=== PATIENT | female | born 1935 | race American Indian/Alaskan Native ===

== ENCOUNTER 2018-01-01 11:34 | Inpatient (IN) | payer MEDICARE ==
[2018-01-01] MEDS ORDERED: NACL 0.9% 1000 ML 1,000 ML IV ONE (12:48)
[2018-01-01] MEDS ORDERED: ZOSYN/NS 4.5GM/100ML 4.5 GM/100 ML VIAL IV ONE (12:48)
[2018-01-01] MEDS ORDERED: VANCOMYCIN 1,500 MG in NACL 0.9% 500 ML 500 ML IV ONE (13:00)
[2018-01-01] MEDS ORDERED: VANCOMYCIN PHARMACY TO DOSE IV SCH (13:00)
[2018-01-01 13:32] LABS: Basophils % (Auto) 0.6 % (0.0-1.8); Eosinophils # (Auto) 0.3 K/mm3 (0.0-0.4); Eosinophils % (Auto) 9.1 % (0.0-4.3); Hematocrit 32.3 % (30.3-42.9); Hemoglobin 10.3 gm/dl (10.1-14.3); Lymphocytes # (Auto) 0.8 K/mm3 (1.2-5.4); Lymphocytes % (Auto) 23.8 % (13.4-35.0); Mean Corpuscular HGB Conc 32 % (30-34); Mean Corpuscular Hemoglobin 30 pg (28-32); Mean Corpuscular Volume 95 fl (79-97); Monocytes # (Auto) 0.3 K/mm3 (0.0-0.8); Monocytes % (Auto) 8.4 % (0.0-7.3); Platelet Count 215 K/mm3 (140-440); Red Cell Distribution Width 19.5 % (13.2-15.2)
--- NOTE | 2018-01-01 13:40 | History and Physical Report ---
History of Present Illness Chief complaint: she is confused,and is getting weaker by the day History of present illness: 82 YO Female with Dementia, HTN, Atrial Fib, Decubitus Ulcer present on admission presents to ED for evaluation. Pt is confused and unable to provide detailed history. Pt history provided by daughter who is at bedside during exam and interview. As per daughter, the patient experienced a fall over 1 month ago and has continuously declined since that time with worsening symptoms over the past week. Pt is confused and complains of pain all over her body. No reports of fever, chills, CP, Palpitations, NVD, Syncope, trauma, skin rash, BRBPR, productive cough or recent ill contacts. Pt seen and evaluated in ED and found to have UTI, and Encephalopathy. Pt admitted to medical floor. Past History Past Medical History: atrial fib, hypertension Past Surgical History: No surgical history, Other (reviewed) Social history: single, lives with family. denies: smoking, alcohol abuse, prescription drug abuse Family history: hypertension Medications and Allergies Allergies Allergy/AdvReac Type Severity Reaction Status Date / Time No Known Allergies Allergy Unverified 01/01/18 12:11 Home Medications Medication Instructions Recorded Confirmed Last Taken Type Allopurinol [Zyloprim] 300 mg PO QDAY 01/01/18 01/01/18 Unknown History Aspirin [Aspirin BABY CHEW TAB] 81 mg PO QDAY 01/01/18 01/01/18 Unknown History Calcium Carbonate [Calcium] 600 mg PO QDAY 01/01/18 01/01/18 Unknown History Colchicine [Colcrys] 0.6 mg PO DAILY 01/01/18 01/01/18 Unknown History Ferrous Sulfate 324 mg PO QDAY 01/01/18 01/01/18 Unknown History Metoprolol Tartrate 25 mg PO BID 01/01/18 01/01/18 Unknown History Sennosides [Senna] 8.6 mg PO QDAY 01/01/18 01/01/18 Unknown History Spironolactone [Aldactone] 25 mg PO BID 01/01/18 01/01/18 Unknown History Warfarin [Coumadin] 2.5 mg PO 6XW 01/01/18 01/01/18 Unknown History Warfarin [Coumadin] 5 mg PO 1XW 01/01/18 01/01/18 Unknown History oxyCODONE [Roxicodone] 5 mg PO Q6HR PRN 01/01/18 01/01/18 Unknown History traZODone [Desyrel] 50 mg PO QHS 01/01/18 01/01/18 Unknown History Active Meds: Active Medications Sodium Chloride (Nacl 0.9% 1000 Ml) 1,000 mls @ 999 mls/hr IV BOLUS ONE Stop: 01/01/18 13:48 Vancomycin HCl 1,500 mg/ (Sodium Chloride) 515 mls @ 333.333 mls/hr IV ONCE.ED ONE Stop: 01/01/18 14:32 Vancomycin HCl (Vancomycin Pharmacy To Dose) 1 each IV PKCONSULT SULLY; Protocol Review of Systems ROS unobtainable: due to mental status Exam - Constitutional Vitals: Temp Pulse Resp BP Pulse Ox 98.3 F 104 H 13 134/69 100 01/01/18 12:11 01/01/18 12:11 01/01/18 12:12 01/01/18 12:11 01/01/18 12:12 General appearance: Present: mild distress - EENT Eyes: Present: PERRL ENT: hearing intact, clear oral mucosa - Neck Neck: Present: supple, normal ROM - Respiratory Respiratory: bilateral: CTA - Cardiovascular Heart Sounds: Present: S1 & S2. Absent: rub, click - Extremities Extremities: pulses symmetrical, No edema Peripheral Pulses: within normal limits - Abdominal General gastrointestinal: Present: soft, non-tender, non-distended, normal bowel sounds Female genitourinary: Present: normal - Integumentary Integumentary: Present: clear, warm, dry - Musculoskeletal Musculoskeletal: generalized weakness - Psychiatric Psychiatric: no intact judgment & insight, no memory intact - Neurologic Neurologic: moves all extremities, no gait normal Results - Labs CBC & Chem 7: 01/01/18 13:07 01/01/18 13:07 Labs: Abnormal lab results 01/01/18 Range/Units 13:07 WBC 3.3 L (4.5-11.0) K/mm3 RBC 3.40 L (3.65-5.03) M/mm3 RDW 19.5 H (13.2-15.2) % [place] % (Auto) 8.4 H (0.0-7.3) % Eos % (Auto) 9.1 H (0.0-4.3) % Lymph # 0.8 L (1.2-5.4) K/mm3 Assessment and Plan - Patient Problems (1) UTI (urinary tract infection) Current Visit: Yes Status: Acute Qualifiers: Encounter type: initial encounter Plan to address problem: Iv antibiotic therapy, IVF resuscitation, (2) Encephalopathy Current Visit: Yes Status: Acute Plan to address problem: CT head, neuro checks, treat UTI, thyroid panel, (3) DJD (degenerative joint disease) Current Visit: Yes Status: Acute Qualifiers: Osteoarthritis location: hip Laterality: left Plan to address problem: Severe DJD, Pain control, supportive care. Pt is a poor surgical candidate for joint replacement. (4) Atrial fibrillation Current Visit: Yes Status: Acute Qualifiers: Atrial fibrillation type: chronic Qualified Code(s): I48.2 - Chronic atrial fibrillation Plan to address problem: continue therapeutic anticoagulation. Risk Benefit. Pt family chooses to continue current therapy. fall precautions. (5) Debility Current Visit: Yes Status: Acute Plan to address problem: Bed alarm, fall precautions, aspiration precautions. PT consulted. (6) DVT prophylaxis Current Visit: Yes Status: Acute
--- NOTE | 2018-01-01 13:44 | Emergency Department Report ---
ED General Adult HPI - General Chief complaint: Fall Stated complaint: BODY PAIN Time Seen by Provider: 01/01/18 12:20 Source: patient, EMS Mode of arrival: Stretcher Limitations: Physical Limitation - History of Present Illness Initial comments: 82-year-old female is accompanied by her daughter. She states that the patient was hospitalized in [place] approximately 45 days ago after a fall. She she states that the hospital did not inform her of any specific trauma. However the patient required an 11 day hospitalization due to low sodium and a UTI. She was transferred to rehabilitation. Now they are here in the area and do have a primary care provider. Apparently, the plan was to get an MRI to discern why the patient was having pain in her left gluteal area. The history is confused at this point; the daughter states that the patient does have an ulcer of the left buttock which she is attributing to the fall. She believes that there is exposed bone there. There has been no recent fever or chills. Patient is unable to ambulate. She is not complaining of any other specific symptoms but history is limited secondary to age. -: week(s) Location: buttocks Quality: aching Consistency: intermittent Improves with: none Worsens with: movement Associated Symptoms: other (apparent decubitus ulcer) Treatments Prior to Arrival: none - Related Data Allergies Allergy/AdvReac Type Severity Reaction Status Date / Time No Known Allergies Allergy Unverified 01/01/18 12:11 ED Review of Systems ROS: Stated complaint: BODY PAIN Other details as noted in HPI Comment: Unobtainable due to pts medical conditions (limited secondary to patient age and condition) ED Past Medical Hx - Past Medical History Hx Hypertension: Yes Additional medical history: A-fib, kidney disease - Social History Smoking Status: Never Smoker ED Physical Exam - General Limitations: Physical Limitation General appearance: alert, in no apparent distress - Head Head exam: Present: atraumatic, normocephalic - Eye Eye exam: Present: normal appearance. Absent: scleral icterus - ENT ENT exam: Present: mucous membranes moist - Neck Neck exam: Present: normal inspection. Absent: tenderness, meningismus - Respiratory Respiratory exam: Present: normal lung sounds bilaterally. Absent: respiratory distress - Cardiovascular Cardiovascular Exam: Present: regular rate, normal rhythm. Absent: systolic murmur, diastolic murmur, rubs, gallop - GI/Abdominal GI/Abdominal exam: Present: soft, normal bowel sounds. Absent: distended, tenderness, guarding, rebound, rigid - Extremities Exam Extremities exam: Present: other (bilateral leg edema no specific calf or thigh tenderness. Discomfort on range of motion of the right leg I think secondary to the decubitus) - Back Exam Back exam: Present: normal inspection. Absent: CVA tenderness (R), CVA tenderness (L) - Neurological Exam Neurological exam: Present: alert, oriented X3, CN II-XII intact, motor sensory deficit (possibly some subtle left-sided weakness) - Psychiatric Psychiatric exam: Present: normal mood, flat affect - Skin Skin exam: Present: warm, dry, normal color, erythema, other (the patient has a grade 2 or so decubitus ulcer. I do not see exposed bone yet. We will be photographed. There is surrounding erythema and warmth). Absent: rash ED Course Vital Signs 01/01/18 01/01/18 12:11 12:12 Temperature 98.3 F Pulse Rate 104 H Respiratory 13 13 Rate Blood Pressure 134/69 [Left] O2 Sat by Pulse 100 100 Oximetry - Reevaluation(s) Reevaluation #1: The patient was given IV fluids, Zosyn and vancomycin. I believe she has infected decubitus ulcer. She may have some left-sided weakness but this is not acute. She will have a CT of her head and pelvis. I will also put her in for bilateral Doppler of her lower extremities as both legs are really quite swollen and she has been bedridden. She is referred to Dr. Cook for further care and management. 01/01/18 13:46 Reevaluation #2: The patient is taking Coumadin. She is a bit over anticoagulated. Her magnesium is low. I will not replete it right now since her potassium is high. This could be monitored by the hospitalist staff for further regulation. 01/01/18 13:55 ED Medical Decision Making - Lab Data Result diagrams: 01/01/18 13:07 01/01/18 13:07 Laboratory Results - last 24 hr 01/01/18 01/01/18 01/01/18 13:07 13:07 13:07 WBC 3.3 L RBC 3.40 L Hgb 10.3 Hct 32.3 MCV 95 MCH 30 MCHC 32 RDW 19.5 H Plt Count 215 Lymph % (Auto) 23.8 [place] % (Auto) 8.4 H Eos % (Auto) 9.1 H Baso % (Auto) 0.6 Lymph # 0.8 L [place] # 0.3 Eos # 0.3 Baso # 0.0 Seg Neutrophils % 58.1 Seg Neutrophils # 1.9 Sodium 133 L Potassium 5.2 H Chloride 97.2 L Carbon Dioxide 22 Anion Gap 19 BUN 17 Creatinine 1.1 Estimated GFR 58 BUN/Creatinine Ratio 15 Glucose 85 Lactic Acid 1.30 Calcium 9.5 Magnesium Total Bilirubin 0.50 ALT 6 L Alkaline Phosphatase 88 Troponin T 0.034 H Total Protein 6.9 Albumin 3.1 L Albumin/Globulin Ratio 0.8 Blood Type 01/01/18 01/01/18 13:07 13:07 WBC RBC Hgb Hct MCV MCH MCHC RDW Plt Count Lymph % (Auto) [place] % (Auto) Eos % (Auto) Baso % (Auto) Lymph # [place] # Eos # Baso # Seg Neutrophils % Seg Neutrophils # Sodium Potassium Chloride Carbon Dioxide Anion Gap BUN Creatinine Estimated GFR BUN/Creatinine Ratio Glucose Lactic Acid Calcium Magnesium 1.20 L Total Bilirubin ALT Alkaline Phosphatase Troponin T Total Protein Albumin Albumin/Globulin Ratio Blood Type AB POSITIVE Laboratory Results - last 24 hr 01/01/18 01/01/18 01/01/18 13:07 13:07 13:07 WBC 3.3 L RBC 3.40 L Hgb 10.3 Hct 32.3 MCV 95 MCH 30 MCHC 32 RDW 19.5 H Plt Count 215 Lymph % (Auto) 23.8 [place] % (Auto) 8.4 H Eos % (Auto) 9.1 H Baso % (Auto) 0.6 Lymph # 0.8 L [place] # 0.3 Eos # 0.3 Baso # 0.0 Seg Neutrophils % 58.1 Seg Neutrophils # 1.9 PT 36.3 H INR 3.35 H APTT 73.3 H* Sodium 133 L Potassium 5.2 H Chloride 97.2 L Carbon Dioxide 22 Anion Gap 19 BUN 17 Creatinine 1.1 Estimated GFR 58 BUN/Creatinine Ratio 15 Glucose 85 Lactic Acid Calcium 9.5 Magnesium Total Bilirubin 0.50 Direct Bilirubin < 0.2 Indirect Bilirubin 0.3 ALT 6 L Alkaline Phosphatase 88 Troponin T 0.034 H Total Protein 6.9 Albumin 3.1 L Albumin/Globulin Ratio 0.8 Urine Bilirubin Urine RBC (Auto) U Epithel Cells (Auto) Blood Type 01/01/18 01/01/18 01/01/18 13:07 13:07 13:07 WBC RBC Hgb Hct MCV MCH MCHC RDW Plt Count Lymph % (Auto) [place] % (Auto) Eos % (Auto) Baso % (Auto) Lymph # [place] # Eos # Baso # Seg Neutrophils % Seg Neutrophils # PT INR APTT Sodium Potassium Chloride Carbon Dioxide Anion Gap BUN Creatinine Estimated GFR BUN/Creatinine Ratio Glucose Lactic Acid 1.30 Calcium Magnesium 1.20 L Total Bilirubin Direct Bilirubin Indirect Bilirubin ALT Alkaline Phosphatase Troponin T Total Protein Albumin Albumin/Globulin Ratio Urine Bilirubin Urine RBC (Auto) U Epithel Cells (Auto) Blood Type AB POSITIVE 01/01/18 13:15 WBC RBC Hgb Hct MCV MCH MCHC RDW Plt Count Lymph % (Auto) [place] % (Auto) Eos % (Auto) Baso % (Auto) Lymph # [place] # Eos # Baso # Seg Neutrophils % Seg Neutrophils # PT INR APTT Sodium Potassium Chloride Carbon Dioxide Anion Gap BUN Creatinine Estimated GFR BUN/Creatinine Ratio Glucose Lactic Acid Calcium Magnesium Total Bilirubin Direct Bilirubin Indirect Bilirubin ALT Alkaline Phosphatase Troponin T Total Protein Albumin Albumin/Globulin Ratio Urine Bilirubin Neg Urine RBC (Auto) 1.0 U Epithel Cells (Auto) < 1.0 Blood Type Laboratory Results - last 24 hr 01/01/18 01/01/18 01/01/18 13:07 13:07 13:07 WBC 3.3 L RBC 3.40 L Hgb 10.3 Hct 32.3 MCV 95 MCH 30 MCHC 32 RDW 19.5 H Plt Count 215 Lymph % (Auto) 23.8 [place] % (Auto) 8.4 H Eos % (Auto) 9.1 H Baso % (Auto) 0.6 Lymph # 0.8 L [place] # 0.3 Eos # 0.3 Baso # 0.0 Seg Neutrophils % 58.1 Seg Neutrophils # 1.9 PT 36.3 H INR 3.35 H APTT 73.3 H* Sodium 133 L Potassium 5.2 H Chloride 97.2 L Carbon Dioxide 22 Anion Gap 19 BUN 17 Creatinine 1.1 Estimated GFR 58 BUN/Creatinine Ratio 15 Glucose 85 Lactic Acid Calcium 9.5 Magnesium Total Bilirubin 0.50 Direct Bilirubin < 0.2 Indirect Bilirubin 0.3 AST 23 ALT 6 L Alkaline Phosphatase 88 Troponin T 0.034 H Total Protein 6.9 Albumin 3.1 L Albumin/Globulin Ratio 0.8 Urine Color Urine Turbidity Urine pH Ur Specific Anna Urine Protein Urine Glucose (UA) Urine Ketones Urine Blood Urine Nitrite Urine Bilirubin Urine Urobilinogen Ur Leukocyte Esterase Urine WBC (Auto) Urine RBC (Auto) U Epithel Cells (Auto) Urine Mucus Blood Type 01/01/18 01/01/18 01/01/18 13:07 13:07 13:07 WBC RBC Hgb Hct MCV MCH MCHC RDW Plt Count Lymph % (Auto) [place] % (Auto) Eos % (Auto) Baso % (Auto) Lymph # [place] # Eos # Baso # Seg Neutrophils % Seg Neutrophils # PT INR APTT Sodium Potassium Chloride Carbon Dioxide Anion Gap BUN Creatinine Estimated GFR BUN/Creatinine Ratio Glucose Lactic Acid 1.30 Calcium Magnesium 1.20 L Total Bilirubin Direct Bilirubin Indirect Bilirubin AST ALT Alkaline Phosphatase Troponin T Total Protein Albumin Albumin/Globulin Ratio Urine Color Urine Turbidity Urine pH Ur Specific Anna Urine Protein Urine Glucose (UA) Urine Ketones Urine Blood Urine Nitrite Urine Bilirubin Urine Urobilinogen Ur Leukocyte Esterase Urine WBC (Auto) Urine RBC (Auto) U Epithel Cells (Auto) Urine Mucus Blood Type AB POSITIVE 01/01/18 13:15 WBC RBC Hgb Hct MCV MCH MCHC RDW Plt Count Lymph % (Auto) [place] % (Auto) Eos % (Auto) Baso % (Auto) Lymph # [place] # Eos # Baso # Seg Neutrophils % Seg Neutrophils # PT INR APTT Sodium Potassium Chloride Carbon Dioxide Anion Gap BUN Creatinine Estimated GFR BUN/Creatinine Ratio Glucose Lactic Acid Calcium Magnesium Total Bilirubin Direct Bilirubin Indirect Bilirubin AST ALT Alkaline Phosphatase Troponin T Total Protein Albumin Albumin/Globulin Ratio Urine Color Yellow Urine Turbidity Clear Urine pH 5.0 Ur Specific Anna 1.015 Urine Protein <15 mg/dl Urine Glucose (UA) Neg Urine Ketones Neg Urine Blood Sm Urine Nitrite Pos Urine Bilirubin Neg Urine Urobilinogen < 2.0 Ur Leukocyte Esterase Sm Urine WBC (Auto) 17.0 H Urine RBC (Auto) 1.0 U Epithel Cells (Auto) < 1.0 Urine Mucus Few Blood Type - EKG Data -: EKG Interpreted by Me EKG shows normal: QRS complexes Rate: tachycardia - EKG Data Interpretation: other (atrial fibrillation rapid ventricular response laterally) - Radiology Data interpreted by me: Chest x-ray shows no acute process Critical care attestation.: If time is entered above; I have spent that time in minutes in the direct care of this critically ill patient, excluding procedure time. ED Disposition Clinical Impression: Cellulitis, gluteal, left, Hyperkalemia, Hyponatremia, Hypomagnesemia, Over- anticoagulated, Atrial fibrillation with rapid ventricular response, Elevated troponin Decubitus ulcer Qualifiers: Pressure ulcer location: buttock Pressure ulcer stage: stage 2 Laterality: left Qualified Code(s): L89.322 - Pressure ulcer of left buttock, stage 2 Disposition: OP ADMIT IP TO THIS HOSP Is pt being admited?: Yes Does the pt Need Aspirin: No (over anticoagulated defer aspirin) Condition: Stable Referrals: PRIMARY CARE, [Referring] - 3-5 Days Time of Disposition: 13:59
[2018-01-01 13:47] LABS: Alanine Aminotransferase 6 units/L (7-56); Albumin 3.1 g/dL (3.9-5); BUN/Creatinine Ratio 15; Blood Urea Nitrogen 17 mg/dL (7-17); Calcium 9.5 mg/dL (8.4-10.2); Hemolysis Index 43
[2018-01-01 13:49] LABS: INR 3.35 (0.87-1.13)
[2018-01-01 13:50] LABS: Bilirubin,Urine NEG (Negative); Blood,Urine SM (Negative); Color,Urine Yellow (Yellow); Mucus,Urine FEW /HPF; Protein,Urine <15 mg/dL mg/dL (Negative); Urobilinogen,Urine < 2.0 mg/dL (<2.0)
[2018-01-01 13:52] LABS: Bilirubin,Direct < 0.2 mg/dL (0-0.2)
[2018-01-01 13:53] LABS: Partial Thromboplastin Time 73.3 Sec. (24.2-36.6)
[2018-01-01 14:10] LABS: Chol/HDL Ratio 1.91 %; HDL Cholesterol 62 mg/dL (40-59); LDL Cholesterol,Direct 41 mg/dL (50-130)
--- NOTE | 2018-01-01 14:30 | XRay Report ---
AP CHEST: HISTORY: Fever, sepsis AP view of the chest demonstrates a normal mediastinal and cardiac contour with clear lungs and normal bony and soft tissue structures. IMPRESSION: No acute cardiopulmonary process identified.
--- NOTE | 2018-01-01 14:41 | Cat Scan Report ---
CT HEAD WITHOUT CONTRAST: HISTORY: . TECHNIQUE: Sequential CT images without contrast. FINDINGS: Images obtained show bilateral prominence of the sulci and ventricles. There are no abnormal intra- or extra-axial blood or fluid collections. There are no focal masses or evidence of mass effect. The gonzalez white matter differentiation appears within normal limits. Regions of periventricular decreased attenuation are consistent with microangiopathic ischemic disease. Chronic ischemic insult in the superior, posterior cerebellum is suspected. The remainder of the posterior fossa is unremarkable. 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 No acute intracranial process noted.
--- NOTE | 2018-01-01 14:43 | Cat Scan Report ---
CT PELVIS WITHOUT CHEST History: Trauma, pain. Technique: Helical CT with sagittal and coronal reformatted images. Findings: No evidence for pelvic fracture, diastasis or bone lesion. Severe degenerative changes are noted at the left hip. Moderate degenerative changes in the lower lumbar spine. The pelvic viscera are intact. No evidence for fluid collection, mass or adenopathy. Impression: No evidence for acute injury to the pelvis. Degenerative changes.
[2018-01-01] MEDS ORDERED: COUMADIN PO SCH (18:00)
[2018-01-01 18:30] LABS: Free T4 (Free Thyroxine) 1.44 ng/dL (0.76-1.46)
[2018-01-01] MEDS ORDERED: TYLENOL PO PRN (21:00)
[2018-01-01] MEDS ORDERED: PROVENTIL IH PRN (21:00)
[2018-01-01] MEDS ORDERED: SODIUM CHLORIDE FLUSH SYRINGE 10 ML IV PRN (21:00)
[2018-01-01] MEDS ORDERED: ZOFRAN IV PRN (21:00)
[2018-01-01 21:02] LABS: Free T4 (Free Thyroxine) 1.26 ng/dL (0.76-1.46)
[2018-01-01] MEDS: ALDACTONE PO SCH (22:03)
[2018-01-01] MEDS: FEOSOL PO SCH (22:03)
[2018-01-01] MEDS: SODIUM CHLORIDE FLUSH SYRINGE 10 ML IV SCH (22:04)
[2018-01-01] MEDS: ROXICODONE PO PRN (22:04)
[2018-01-01] MEDS: DESYREL PO SCH (22:04)
[2018-01-02] MEDS: FEOSOL PO SCH ×3 (08:55→21:37)
[2018-01-02 09:10] LABS: INR 2.99 (0.87-1.13)
[2018-01-02] MEDS ORDERED: FERROUS SULFATE 324 MG PO SCH (10:00)
[2018-01-02] MEDS: ZYLOPRIM PO SCH (10:00)
[2018-01-02] MEDS: BABY ASPIRIN PO SCH (10:00)
[2018-01-02] MEDS ORDERED: NON-FORMULARY (Calcium Carbonate [Calcium] 600 MG) PO SCH (10:00)
[2018-01-02] MEDS: ALDACTONE PO SCH ×2 (10:00→21:37)
[2018-01-02] MEDS: CALTRATE PLUS PO SCH (10:00)
[2018-01-02] MEDS: SODIUM CHLORIDE FLUSH SYRINGE 10 ML IV SCH ×2 (10:01→21:39)
--- NOTE | 2018-01-02 10:37 | Progress Note ---
Assessment and Plan /UTI (urinary tract infection) Continue Iv antibiotic therapy, IVF resuscitation, Will follow urine culture and blood culture / Acute Encephalopathy, likely metabolic CT head showed chronic ischemic changes, continue neuro checks, treat UTI, normal thyroid panel / DJD (degenerative joint disease) Severe DJD, Pain control, supportive care. Pt is a poor surgical candidate for joint replacement. /Atrial fibrillation with supratherapeutic INR We'll hold Coumadin for now, monitor INR Pt family chooses to continue current therapy. fall precautions. /HTN, will continue home meds, monitor BP and adjust medications as needed / Debility Bed alarm, fall precautions, aspiration precautions. PT consulted. /Sacral decubitus ulcer, POA - will do wound consult / DVT prophylaxis, none needed patient anticoagulated with Coumadin Brief history: 82 YO Female with Dementia, HTN, Atrial Fib, Decubitus Ulcer present on admission presents to ED for evaluation of altered mental status. As per daughter, the patient experienced a fall over 1 month ago and has continuously declined since that time with worsening symptoms over the past week. Pt seen and evaluated in ED and found to have UTI, Encephalopathy and supratherapeutic INR. Pt was admitted to medical floor for further evaluation and management. 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 Pelvis CT without contrast: No evidence of acute injury to the pelvis, degenerative changes. Chest x-ray: No acute infiltrates. Hospitalist Physical exam: GENERAL: well-developed and well-nourished elderly female lying on bed appeared to be in no discomfort. HEENT: Normocephalic. Atraumatic. No conjunctival congestion or icterus. Patient has moist mucous membranes. NECK: Supple. Trachea midline. CHEST/LUNGS: Clear to auscultated bilaterally, breathing nonlabored. No wheezes crackles or rhonchi. HEART/CARDIOVASCULAR: Regular in rate and rhythm. S1 and S2 positive. ABDOMEN: Abdomen is soft, nontender. Patient has normal bowel sounds. SKIN: There is no rash. Warm and dry. NEURO: No focal motor deficit. Follows command. Oriented to place and person MUSCULOSKELETAL: No joint effusion or tenderness. EXTRIMITY: No edema, no cyanosis or clubbing. PSYCH: Cooperative. Subjective Date of service: 01/02/18 Interval history: Patient seen and examined. Medical records and medication list reviewed. No acute event overnight noted by the RN. Patient denies any chest pain or difficulty breathing. Patient is tolerating diet. Discussed plan of care at bedside with patient. Objective - Constitutional Vitals: Vital Signs - 12hr 01/02/18 01/02/18 01/02/18 02:39 07:40 10:00 Temperature 98.1 F 97.5 F L Pulse Rate 89 98 H 98 H Respiratory 20 20 Rate Blood Pressure 132/76 152/85 152/85 O2 Sat by Pulse 99 100 Oximetry - Labs CBC & Chem 7: 01/01/18 13:07 01/03/18 06:06 Labs: Abnormal lab results 01/01/18 01/01/18 01/01/18 Range/Units 13:07 13:07 13:07 WBC 3.3 L (4.5-11.0) K/mm3 RBC 3.40 L (3.65-5.03) M/mm3 RDW 19.5 H (13.2-15.2) % [place] % (Auto) 8.4 H (0.0-7.3) % Eos % (Auto) 9.1 H (0.0-4.3) % Lymph # 0.8 L (1.2-5.4) K/mm3 PT 36.3 H (12.2-14.9) Sec. INR 3.35 H (0.87-1.13) APTT 73.3 H* (24.2-36.6) Sec. Sodium 133 L (137-145) mmol/L Potassium 5.2 H (3.6-5.0) mmol/L Chloride 97.2 L (98-107) mmol/L Magnesium (1.7-2.3) mg/dL ALT 6 L (7-56) units/L Troponin T 0.034 H (0.00-0.029) ng/mL Albumin 3.1 L (3.9-5) g/dL LDL Cholesterol Direct 41 L (50-130) mg/dL HDL Cholesterol 62 H (40-59) mg/dL Urine WBC (Auto) (0.0-6.0) /HPF 01/01/18 01/01/18 01/02/18 Range/Units 13:07 13:15 08:31 WBC (4.5-11.0) K/mm3 RBC (3.65-5.03) M/mm3 RDW (13.2-15.2) % [place] % (Auto) (0.0-7.3) % Eos % (Auto) (0.0-4.3) % Lymph # (1.2-5.4) K/mm3 PT 33.1 H (12.2-14.9) Sec. INR 2.99 H (0.87-1.13) APTT (24.2-36.6) Sec. Sodium (137-145) mmol/L Potassium (3.6-5.0) mmol/L Chloride (98-107) mmol/L Magnesium 1.20 L (1.7-2.3) mg/dL ALT (7-56) units/L Troponin T (0.00-0.029) ng/mL Albumin (3.9-5) g/dL LDL Cholesterol Direct (50-130) mg/dL HDL Cholesterol (40-59) mg/dL Urine WBC (Auto) 17.0 H (0.0-6.0) /HPF
[2018-01-02 12:08] LABS: BUN/Creatinine Ratio 16; Blood Urea Nitrogen 16 mg/dL (7-17)
[2018-01-02 12:09] LABS: Hemolysis Index 141
[2018-01-02] MEDS: COLCRYS PO SCH (12:14)
[2018-01-02] MEDS: SENOKOT PO SCH (12:14)
[2018-01-02] MEDS ORDERED: VANCOMYCIN 1,250 MG in NACL 0.9% 250ML 250 ML IV SCH (14:00)
[2018-01-02] MEDS: ROXICODONE PO PRN ×2 (14:14→21:58)
[2018-01-02] MEDS ORDERED: COUMADIN PO ONE (17:00)
[2018-01-02] MEDS ORDERED: KIONEX PO PRN (17:24)
[2018-01-02] MEDS: DESYREL PO SCH (21:37)
[2018-01-03] MEDS: ROXICODONE PO PRN ×3 (04:59→21:39)
[2018-01-03] MEDS: FEOSOL PO SCH ×3 (09:00→21:00)
[2018-01-03] MEDS: SENOKOT PO SCH (09:49)
[2018-01-03] MEDS: ALDACTONE PO SCH ×2 (09:49→21:39)
[2018-01-03] MEDS: CALTRATE PLUS PO SCH (09:49)
[2018-01-03] MEDS: COLCRYS PO SCH (09:50)
[2018-01-03] MEDS: ZYLOPRIM PO SCH (09:52)
[2018-01-03] MEDS: BABY ASPIRIN PO SCH (09:52)
[2018-01-03] MEDS: SODIUM CHLORIDE FLUSH SYRINGE 10 ML IV SCH (09:53)
[2018-01-03 10:41] LABS: INR 2.89 (0.87-1.13)
[2018-01-03] MEDS: cefTRIAXone 1 GM in NACL 0.9% 20 ML IV SCH (12:45)
[2018-01-03] MEDS: COUMADIN PO SCH (16:45)
[2018-01-03 18:13] LABS: BUN/Creatinine Ratio 21; Blood Urea Nitrogen 15 mg/dL (7-17); Calcium 9.3 mg/dL (8.4-10.2); Hemolysis Index 23
--- NOTE | 2018-01-03 18:47 | Progress Note ---
Assessment and Plan /UTI (urinary tract infection) Urine cx growing E. coli, blood cx negative Continue Iv antibiotic therapy with rocephin, IVF resuscitation, / Acute Encephalopathy, likely metabolic Now appears at baseline CT head showed chronic ischemic changes, continue neuro checks, treat UTI, normal thyroid panel / DJD (degenerative joint disease) Severe DJD, Pain control, supportive care. Pt is a poor surgical candidate for joint replacement. /Atrial fibrillation with supratherapeutic INR held Coumadin on admission, monitor INR Pt family chooses to continue current therapy. fall precautions. INR now therapeutic, will resume from tomorrow /HTN, will continue home meds, monitor BP and adjust medications as needed / Debility Bed alarm, fall precautions, aspiration precautions. PT consulted - eval pending /Neuropathy - b/l LE - venous doppler negative - will check B12 and Vit D, start low dose neurontin /Sacral decubitus ulcer, POA - will do wound consult / DVT prophylaxis, none needed patient anticoagulated with Coumadin Brief history: 82 YO Female with Dementia, HTN, Atrial Fib, Decubitus Ulcer present on admission presents to ED for evaluation of altered mental status. As per daughter, the patient experienced a fall over 1 month ago and has continuously declined since that time with worsening symptoms over the past week. Pt seen and evaluated in ED and found to have UTI, Encephalopathy and supratherapeutic INR. Pt was admitted to medical floor for further evaluation and management. 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 Pelvis CT without contrast: No evidence of acute injury to the pelvis, degenerative changes. Chest x-ray: No acute infiltrates. Hospitalist Physical exam: GENERAL: well-developed and well-nourished elderly female lying on bed appeared to be in no discomfort. HEENT: Normocephalic. Atraumatic. No conjunctival congestion or icterus. Patient has moist mucous membranes. NECK: Supple. Trachea midline. CHEST/LUNGS: Clear to auscultated bilaterally, breathing nonlabored. No wheezes crackles or rhonchi. HEART/CARDIOVASCULAR: Regular in rate and rhythm. S1 and S2 positive. ABDOMEN: Abdomen is soft, nontender. Patient has normal bowel sounds. SKIN: There is no rash. Warm and dry. NEURO: No focal motor deficit. Follows command. Oriented to place and person MUSCULOSKELETAL: No joint effusion or tenderness. EXTRIMITY: trace edema, no cyanosis or clubbing. calf tenderness PSYCH: Cooperative. Subjective Date of service: 01/03/18 Interval history: Patient seen and examined. Medical records and medication list reviewed. No acute event overnight noted by the RN. Patient denies any chest pain or difficulty breathing. Patient is tolerating diet. continue to c/o b/l LE pain and swelling Discussed plan of care at bedside with patient. Objective - Constitutional Vitals: Vital Signs - 12hr 01/03/18 01/03/18 01/03/18 08:16 09:49 10:00 Temperature 98.8 F Pulse Rate 113 H 113 H 105 H Respiratory 18 Rate Blood Pressure 135/60 135/60 O2 Sat by Pulse 100 Oximetry 01/03/18 01/03/18 13:12 13:55 Temperature 98.3 F Pulse Rate 113 H Respiratory 18 18 Rate Blood Pressure 138/66 O2 Sat by Pulse 98 Oximetry - Labs CBC & Chem 7: 01/01/18 13:07 01/03/18 17:01 Labs: Abnormal lab results 01/03/18 01/03/18 Range/Units 10:00 17:01 PT 32.2 H (12.2-14.9) Sec. INR 2.89 H (0.87-1.13) Sodium 136 L (137-145) mmol/L Chloride 97.7 L (98-107) mmol/L Glucose 113 H (65-100) mg/dL
[2018-01-03] MEDS: DESYREL PO SCH (21:32)
[2018-01-04] MEDS: cefTRIAXone 1 GM in NACL 0.9% 20 ML IV SCH ×2 (00:17→12:05)
[2018-01-04] MEDS: SODIUM CHLORIDE FLUSH SYRINGE 10 ML IV SCH ×3 (00:18→21:20)
[2018-01-04] MEDS: ROXICODONE PO PRN ×3 (06:36→21:13)
[2018-01-04 08:21] LABS: INR 2.36 (0.87-1.13)
[2018-01-04] MEDS ORDERED: LOPRESSOR PO SCH (10:00)
[2018-01-04] MEDS: CALTRATE PLUS PO SCH (10:47)
[2018-01-04] MEDS: FEOSOL PO SCH ×3 (10:47→21:13)
[2018-01-04] MEDS: BABY ASPIRIN PO SCH (10:47)
[2018-01-04] MEDS: COLCRYS PO SCH (10:48)
[2018-01-04] MEDS: ZYLOPRIM PO SCH (10:50)
[2018-01-04] MEDS: SENOKOT PO SCH (10:50)
[2018-01-04 13:21] LABS: BUN/Creatinine Ratio 16; Blood Urea Nitrogen 13 mg/dL (7-17); Calcium 9.6 mg/dL (8.4-10.2); Hemolysis Index 7
--- NOTE | 2018-01-04 14:51 | Progress Note ---
Assessment and Plan /UTI (urinary tract infection) Urine cx growing E. coli, blood cx negative Continue Iv antibiotic therapy with rocephin, IVF resuscitation, / Acute Encephalopathy, likely metabolic CT head showed chronic ischemic changes, continue neuro checks, treat UTI, normal thyroid panel Will also obtain MRI brain / DJD (degenerative joint disease) Severe DJD, Pain control, supportive care. Pt is a poor surgical candidate for joint replacement. /Atrial fibrillation with supratherapeutic INR held Coumadin on admission, Pt family chooses to continue current therapy. INR now therapeutic, cont coumadin /HTN, will continue metoprolol, monitor BP and adjust medications as needed /Hyperkalemia, -could be med induced, stop aldectone /elevated troponin - cont aspirin, BB, start statin - consult cardiology, pt has no chest pain / Debility with recurrent falls Bed alarm, fall precautions, aspiration precautions. PT consulted - eval pending Obtain MRI /Neuropathy - b/l LE - venous doppler negative - will check B12 and Vit D, start low dose neurontin /Sacral decubitus ulcer, POA - will do wound consult / DVT prophylaxis, none needed patient anticoagulated with Coumadin Brief history: 82 YO Female with Dementia, HTN, Atrial Fib, Decubitus Ulcer present on admission presents to ED for evaluation of altered mental status. As per daughter, the patient experienced a fall over 1 month ago and has continuously declined since that time with worsening symptoms over the past week. Pt seen and evaluated in ED and found to have UTI, Encephalopathy and supratherapeutic INR. Pt was admitted to medical floor for further evaluation and management. 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 Pelvis CT without contrast: No evidence of acute injury to the pelvis, degenerative changes. Chest x-ray: No acute infiltrates. Hospitalist Physical exam: GENERAL: well-developed and well-nourished elderly female lying on bed appeared to be in no discomfort. HEENT: Normocephalic. Atraumatic. No conjunctival congestion or icterus. Patient has moist mucous membranes. NECK: Supple. Trachea midline. CHEST/LUNGS: Clear to auscultated bilaterally, breathing nonlabored. No wheezes crackles or rhonchi. HEART/CARDIOVASCULAR: Regular in rate and rhythm. S1 and S2 positive. ABDOMEN: Abdomen is soft, nontender. Patient has normal bowel sounds. SKIN: There is no rash. Warm and dry. NEURO: No focal motor deficit. Follows command. Oriented to place and person MUSCULOSKELETAL: No joint effusion or tenderness. EXTRIMITY: trace edema, no cyanosis or clubbing. calf tenderness PSYCH: Cooperative. Subjective Date of service: 01/04/18 Interval history: Patient seen and examined. Medical records and medication list reviewed. No acute event overnight noted by the RN. continue to c/o b/l LE pain and swelling Discussed plan of care at bedside with patient's daughter Per daughter pt was planned to have MRI for recurrent fall at home. Objective - Constitutional Vitals: Vital Signs - 12hr 01/04/18 01/04/18 01/04/18 10:49 12:27 13:27 Pulse Rate 132 H Respiratory 20 20 Rate Blood Pressure 156/64 - Labs CBC & Chem 7: 01/01/18 13:07 01/04/18 12:44 Labs: Abnormal lab results 01/03/18 01/04/18 01/04/18 Range/Units 17:01 07:12 12:44 PT 27.4 H (12.2-14.9) Sec. INR 2.36 H (0.87-1.13) Sodium 136 L 133 L (137-145) mmol/L Chloride 97.7 L 95.7 L (98-107) mmol/L Glucose 113 H 117 H (65-100) mg/dL Troponin T (0.00-0.029) ng/mL 01/04/18 Range/Units 12:44 PT (12.2-14.9) Sec. INR (0.87-1.13) Sodium (137-145) mmol/L Chloride (98-107) mmol/L Glucose (65-100) mg/dL Troponin T 0.036 H (0.00-0.029) ng/mL
--- NOTE | 2018-01-04 15:39 | Consultation ---
History of Present Illness Consult date: 01/04/18 Consult reason: atrial fibrillation Past History Past Medical History: atrial fib, hypertension Past Surgical History: No surgical history, Other (reviewed) Social history: single, lives with family. denies: smoking, alcohol abuse, prescription drug abuse Family history: hypertension Medications and Allergies Allergies Allergy/AdvReac Type Severity Reaction Status Date / Time No Known Allergies Allergy Unverified 01/01/18 12:11 Home Medications Medication Instructions Recorded Confirmed Last Taken Type Allopurinol [Zyloprim] 300 mg PO QDAY 01/01/18 01/01/18 Unknown History Aspirin [Aspirin BABY CHEW TAB] 81 mg PO QDAY 01/01/18 01/01/18 Unknown History Calcium Carbonate [Calcium] 600 mg PO QDAY 01/01/18 01/01/18 Unknown History Colchicine [Colcrys] 0.6 mg PO DAILY 01/01/18 01/01/18 Unknown History Ferrous Sulfate 324 mg PO QDAY 01/01/18 01/01/18 Unknown History Metoprolol Tartrate 25 mg PO BID 01/01/18 01/01/18 Unknown History Sennosides [Senna] 8.6 mg PO QDAY 01/01/18 01/01/18 Unknown History Spironolactone [Aldactone] 25 mg PO BID 01/01/18 01/01/18 Unknown History Warfarin [Coumadin] 2.5 mg PO 6XW 01/01/18 01/01/18 Unknown History Warfarin [Coumadin] 5 mg PO 1XW 01/01/18 01/01/18 Unknown History oxyCODONE [Roxicodone] 5 mg PO Q6HR PRN 01/01/18 01/01/18 Unknown History traZODone [Desyrel] 50 mg PO QHS 01/01/18 01/01/18 Unknown History Active Meds: Active Medications Acetaminophen (Tylenol) 650 mg PO Q4H PRN PRN Reason: Pain MILD(1-3)/Fever >100.5/GLEZ Last Admin: 01/02/18 18:24 Dose: 650 mg Albuterol (Proventil) 2.5 mg IH Q4HRT PRN PRN Reason: Shortness Of Breath Allopurinol (Zyloprim) 300 mg PO QDAY [facility] Last Admin: 01/04/18 10:50 Dose: 300 mg Aspirin (Baby Aspirin) 81 mg PO QDAY [facility] Last Admin: 01/04/18 10:47 Dose: 81 mg Colchicine (Colcrys) 0.6 mg PO DAILY [facility] Last Admin: 01/04/18 10:48 Dose: 0.6 mg Ferrous Sulfate (Feosol) 325 mg PO TID [facility] Last Admin: 01/04/18 10:47 Dose: 325 mg Gabapentin (Neurontin) 100 mg PO Q8HR [facility] Ceftriaxone Sodium 1 gm/ (Sodium Chloride) 20 mls @ 2 mls/min IV Q24HR [facility] Last Admin: 01/04/18 12:05 Dose: 2 mls/min Metoprolol Tartrate (Lopressor) 50 mg PO BID [facility] Multivitamins/Minerals (Caltrate Plus) 1 each PO QDAY [facility] Last Admin: 01/04/18 10:47 Dose: 1 each Ondansetron HCl (Zofran) 4 mg IV Q8H PRN PRN Reason: Nausea And Vomiting Oxycodone HCl (Roxicodone) 5 mg PO Q6HR PRN PRN Reason: Pain Last Admin: 01/04/18 12:27 Dose: 5 mg Senna (Senokot) 8.6 mg PO QDAY [facility] Last Admin: 01/04/18 10:50 Dose: 8.6 mg Sodium Chloride (Sodium Chloride Flush Syringe 10 Ml) 10 ml IV BID [facility] Last Admin: 01/04/18 12:15 Dose: 10 ml Sodium Chloride (Sodium Chloride Flush Syringe 10 Ml) 10 ml IV PRN PRN PRN Reason: LINE FLUSH Sodium Polystyrene Sulfonate (Kionex) 15 gm PO Q6HR PRN PRN Reason: Hyperkalemia Trazodone HCl (Desyrel) 50 mg PO QHS [facility] Last Admin: 01/03/18 21:32 Dose: 50 mg Warfarin Sodium (Coumadin) 2.5 mg PO 1700 [facility]; Protocol Last Admin: 01/03/18 16:45 Dose: 2.5 mg Warfarin Sodium (Coumadin Pharmacy To Dose) 1 each PO PKCONSULT [facility] Physical Examination Vital Signs Pulse Resp Pulse Ox 101 H 13 99 01/01/18 12:04 01/01/18 12:04 01/01/18 12:04 Results 01/01/18 13:07 01/04/18 12:44 Coagulation 01/04/18 Range/Units 07:12 PT 27.4 H (12.2-14.9) Sec. INR 2.36 H (0.87-1.13) Comprehensive Metabolic Panel 01/03/18 01/04/18 Range/Units 17:01 12:44 Sodium 136 L 133 L (137-145) mmol/L Potassium 4.8 5.0 (3.6-5.0) mmol/L Chloride 97.7 L 95.7 L (98-107) mmol/L Carbon Dioxide 25 26 (22-30) mmol/L BUN 15 13 (7-17) mg/dL Creatinine 0.7 0.8 (0.7-1.2) mg/dL Glucose 113 H 117 H (65-100) mg/dL Calcium 9.3 9.6 (8.4-10.2) mg/dL
--- NOTE | 2018-01-04 15:57 | Event Note ---
Date: 01/04/18 Patient's primary clearing supervisor is [facility]. We will defer to them for cardiac care.
[2018-01-04] MEDS: NEURONTIN PO SCH ×2 (18:18→21:13)
[2018-01-04] MEDS: COUMADIN PO SCH (18:18)
--- NOTE | 2018-01-04 19:58 | Magnetic Resonance Report ---
FINAL REPORT EXAM: MR BRAIN WO CON HISTORY: recurrent MRI TECHNIQUE: Multiplanar multisequence noncontrast MR images of the brain were performed. Comparison: None FINDINGS: Fully formed corpus callosum. Unremarkable sella turcica, posterior pituitary bright spot, colliculus, brainstem, and posterior fossa. Cortical atrophy. There is a 4 millimeter focus of restricted diffusion in the anterior limb of the right internal capsule and a questionable 10 millimeter focus in the right superior thalamus. There is scattered periventricular white matter prolonged T2 signal intensity and prominent perivenular spaces most compatible with small vessel ischemic disease. No acute extra-axial fluid collections or midline shift. No mass effect. Orbital cones and apices are unremarkable. There is mild bilateral ethmoid air cell opacification. There are normal T2 flow voids of the intracranial vasculature. Cerebellopontine angles, and vestibular cochlear nerve sheath bundles are within normal limits. Dental amalgam. Susceptibility artifact. Ill-defined foci of prolonged T2 signal in the brainstem specifically central pooja compatible with small vessel ischemic disease without focal acute restricted diffusion. No focus to suggest blood products acutely Ex vacuo dilatation of the left frontal horn. 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 IMPRESSION: 4 millimeter right anterior limb internal capsule and 10 millimeter superior right thalamic foci of restricted diffusion. No associated hemorrhage with either lesion. Findings are compatible with acute embolic infarcts. Cortical and central atrophy and small vessel ischemic disease. Arsenio critical level 1 result. Findings are called on 01/04/2018 at 1952 hours.
[2018-01-04] MEDS: ALDACTONE PO SCH (20:02)
[2018-01-04] MEDS: DESYREL PO SCH (21:13)
[2018-01-04] MEDS: LOPRESSOR PO SCH (21:15)
--- NOTE | 2018-01-05 00:54 | Event Note ---
Date: 01/04/18 MRI positive for acute CVA Pt already on aspirin, start on lipitor, consult neurology 2d echo with preserved EF, hold coumadin as she developed acute CVA place on frequent neurocheck, PT eval pending
[2018-01-05 01:29] LABS: BUN/Creatinine Ratio 18; Blood Urea Nitrogen 14 mg/dL (7-17); Calcium 9.5 mg/dL (8.4-10.2); Hemolysis Index 38
[2018-01-05] MEDS: NEURONTIN PO SCH ×3 (06:30→22:55)
[2018-01-05 07:37] LABS: INR 2.65 (0.87-1.13)
[2018-01-05] MEDS: FEOSOL PO SCH ×3 (08:45→22:55)
[2018-01-05] MEDS: COLCRYS PO SCH (09:26)
[2018-01-05] MEDS: ZYLOPRIM PO SCH (09:26)
[2018-01-05] MEDS: CALTRATE PLUS PO SCH (09:26)
[2018-01-05] MEDS: SENOKOT PO SCH (09:26)
[2018-01-05] MEDS: LOPRESSOR PO SCH ×2 (09:27→22:55)
[2018-01-05] MEDS: BABY ASPIRIN PO SCH (09:28)
[2018-01-05] MEDS: cefTRIAXone 1 GM in NACL 0.9% 20 ML IV SCH (09:33)
[2018-01-05] MEDS: SODIUM CHLORIDE FLUSH SYRINGE 10 ML IV SCH ×2 (09:35→22:56)
[2018-01-05] MEDS ORDERED: ALDACTONE PO SCH (10:00)
--- NOTE | 2018-01-05 10:01 | History and Physical Report ---
History of Present Illness Date of examination: 01/05/18 Date of admission: 01/01/18 21:10 Chief complaint: FOCUSED NEUROLOGY CONSULT NOTE: CC: I am asked to see this this 82 AA F re gait (no walking x 2 mos) and two new small strokes seen on MRI. HPI: Hx from chart and from patient who is very alert and articulate today. She has AFib, CKD, HTN, lives in [place] and was recently hospitalized for 11 days apparently for buttock pain, inabiltiy to walk, and inabliltiy to cope at home. Most recently she was brought here by family with some confusion, has been fount to have a UTI, Na+ 127, low Mg, elevated INR, AFib with a rapid ventric response. On MRI brain he has been noted to have two very tiny new infarcts on DWI in the Right ant limb of the internal capsule, and in the Right superior thalamus, as well as volume loss. She is no longer confused at present. No prior hx of strokes, no hx of remote or recent focal weakness or focal neuro sx whatsoever. She related that at home in [place] she had to walk with a cane, then had to walk with a walker, the was sitting on the side of her bed one day leaning over to put on a stocking when she slid off the bed and lande hard on her left buttock. No LOC, no head trauma. She was by herself at that time of day, and eventually was able to get herself up. She has not walked since and that was approx two months ago. She has a decubitus over the left buttock, is being treated for cellulitis and has some swelling of the legs. ROS: An 11 point ROS is negative. she has had no dizziness or vertigo, no double vision, and no focal sgns or sx at any time. She has no difficulty with speech or swallowing, vision. 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 Speed fluent, low volume, clear and without errors. Follows all commands quickly and accurately. CN II - 12: nl. Pupils both 4 mm diam and react to bright light stim, EOM full without nystag, no facial weakness MOT: nl strength both UE prox and distally. In the LE, foot dorsiflexors are 5 /5, she can bend her knees and extend these agains some resistance 4/5 but cannot lift either leg off the bed. Movement of the left hip hurts her. SENS: denies loss to touch throughout and over face bilat DTRS: 3+ at biceps bilat, 3+ right knee, 2+ left, absent AJS bilat, great toes moot to plantar stim GAIT: not tested due to fall risk DX IMP: 1. Encephalopathy secondary to UTI and low Na+, now resolved. 2. Two tiny new cerebral infarcts, one in the MCA distribution, one in the GRAPHICS ARTIST distribution, without any clinical correlate, but suggestive of a proximal source of microemboli, eg. the heart and possibly related to her AFib. An infected valve (SBE) is to be excluded. 3. Bilateral leg weakness secondary to bedridden condition x two mos with attendant deconditioning, with antecedent hx of need for use of cane then walker , and now exacc by decubitus ulcer left buttock. 4. Other mult med dxs as above RECC: 1. Get blood cultures x 2 if not already done 2. Continue anticoag re recent daniella strokes 3. Get 2D echo and carotid ultrasound to complete neuro w/u of recent strokes 4. X ray hips 5. Get PT to see re weight bearing and analysis of gait/locomotion needs 6. Get air matress re decubitus care, etc. 7. Go from there. Call as needed. Roberto Amaral MD Past History Past Medical History: atrial fib, hypertension Past Surgical History: No surgical history, Other (reviewed) Social history: single, lives with family. denies: smoking, alcohol abuse, prescription drug abuse Family history: hypertension Medications and Allergies Allergies Allergy/AdvReac Type Severity Reaction Status Date / Time No Known Allergies Allergy Unverified 01/01/18 12:11 Home Medications Medication Instructions Recorded Confirmed Last Taken Type Allopurinol [Zyloprim] 300 mg PO QDAY 01/01/18 01/01/18 Unknown History Aspirin [Aspirin BABY CHEW TAB] 81 mg PO QDAY 01/01/18 01/01/18 Unknown History Calcium Carbonate [Calcium] 600 mg PO QDAY 01/01/18 01/01/18 Unknown History Colchicine [Colcrys] 0.6 mg PO DAILY 01/01/18 01/01/18 Unknown History Ferrous Sulfate 324 mg PO QDAY 01/01/18 01/01/18 Unknown History Metoprolol Tartrate 25 mg PO BID 01/01/18 01/01/18 Unknown History Sennosides [Senna] 8.6 mg PO QDAY 01/01/18 01/01/18 Unknown History Spironolactone [Aldactone] 25 mg PO BID 01/01/18 01/01/18 Unknown History Warfarin [Coumadin] 2.5 mg PO 6XW 01/01/18 01/01/18 Unknown History Warfarin [Coumadin] 5 mg PO 1XW 01/01/18 01/01/18 Unknown History oxyCODONE [Roxicodone] 5 mg PO Q6HR PRN 01/01/18 01/01/18 Unknown History traZODone [Desyrel] 50 mg PO QHS 01/01/18 01/01/18 Unknown History Active Meds: Active Medications Acetaminophen (Tylenol) 650 mg PO Q4H PRN PRN Reason: Pain MILD(1-3)/Fever >100.5/GLEZ Last Admin: 01/02/18 18:24 Dose: 650 mg Albuterol (Proventil) 2.5 mg IH Q4HRT PRN PRN Reason: Shortness Of Breath Allopurinol (Zyloprim) 300 mg PO QDAY [facility] Last Admin: 01/04/18 10:50 Dose: 300 mg Aspirin (Baby Aspirin) 81 mg PO QDAY [facility] Last Admin: 01/04/18 10:47 Dose: 81 mg Atorvastatin Calcium (Lipitor) 40 mg PO QHS [facility] Last Admin: 01/05/18 01:09 Dose: 40 mg Colchicine (Colcrys) 0.6 mg PO DAILY [facility] Last Admin: 01/04/18 10:48 Dose: 0.6 mg Ferrous Sulfate (Feosol) 325 mg PO TID [facility] Last Admin: 01/04/18 21:13 Dose: 325 mg Gabapentin (Neurontin) 100 mg PO Q8HR [facility] Last Admin: 01/05/18 06:30 Dose: 100 mg Ceftriaxone Sodium 1 gm/ (Sodium Chloride) 20 mls @ 2 mls/min IV Q24HR [facility] Last Admin: 01/04/18 12:05 Dose: 2 mls/min Metoprolol Tartrate (Lopressor) 50 mg PO BID [facility] Last Admin: 01/04/18 21:15 Dose: 50 mg Multivitamins/Minerals (Caltrate Plus) 1 each PO QDAY [facility] Last Admin: 01/04/18 10:47 Dose: 1 each Ondansetron HCl (Zofran) 4 mg IV Q8H PRN PRN Reason: Nausea And Vomiting Oxycodone HCl (Roxicodone) 5 mg PO Q6HR PRN PRN Reason: Pain Last Admin: 01/04/18 21:13 Dose: 5 mg Senna (Senokot) 8.6 mg PO QDAY [facility] Last Admin: 01/04/18 10:50 Dose: 8.6 mg Sodium Chloride (Sodium Chloride Flush Syringe 10 Ml) 10 ml IV BID [facility] Last Admin: 01/04/18 21:20 Dose: 10 ml Sodium Chloride (Sodium Chloride Flush Syringe 10 Ml) 10 ml IV PRN PRN PRN Reason: LINE FLUSH Sodium Polystyrene Sulfonate (Kionex) 15 gm PO Q6HR PRN PRN Reason: Hyperkalemia Trazodone HCl (Desyrel) 50 mg PO QHS [facility] Last Admin: 01/04/18 21:13 Dose: 50 mg Physical Examination - Vital Signs Vital Signs: Vital Signs Pulse Resp Pulse Ox 101 H 13 99 01/01/18 12:04 01/01/18 12:04 01/01/18 12:04 Results - Laboratory Findings CBC and BMP: 01/01/18 13:07 01/05/18 00:27 Abnormal Lab Findings: Abnormal Labs 01/01/18 01/01/18 01/01/18 13:07 13:07 13:07 WBC 3.3 L RBC 3.40 L RDW 19.5 H [place] % (Auto) 8.4 H Eos % (Auto) 9.1 H Lymph # 0.8 L PT 36.3 H INR 3.35 H APTT 73.3 H* Sodium 133 L Potassium 5.2 H Chloride 97.2 L Carbon Dioxide Glucose Magnesium ALT 6 L Troponin T 0.034 H Albumin 3.1 L LDL Cholesterol Direct 41 L HDL Cholesterol 62 H Urine WBC (Auto) 01/01/18 01/01/18 01/02/18 13:07 13:15 08:31 WBC RBC RDW [place] % (Auto) Eos % (Auto) Lymph # PT 33.1 H INR 2.99 H APTT Sodium Potassium Chloride Carbon Dioxide Glucose Magnesium 1.20 L ALT Troponin T Albumin LDL Cholesterol Direct HDL Cholesterol Urine WBC (Auto) 17.0 H 01/02/18 01/03/18 01/03/18 11:27 10:00 17:01 WBC RBC RDW [place] % (Auto) Eos % (Auto) Lymph # PT 32.2 H INR 2.89 H APTT Sodium 134 L 136 L Potassium 5.2 H Chloride 97.7 L Carbon Dioxide Glucose 113 H 113 H Magnesium ALT Troponin T Albumin LDL Cholesterol Direct HDL Cholesterol Urine WBC (Auto) 01/04/18 01/04/18 01/04/18 07:12 12:44 12:44 WBC RBC RDW [place] % (Auto) Eos % (Auto) Lymph # PT 27.4 H INR 2.36 H APTT Sodium 133 L Potassium Chloride 95.7 L Carbon Dioxide Glucose 117 H Magnesium ALT Troponin T 0.036 H Albumin LDL Cholesterol Direct HDL Cholesterol Urine WBC (Auto) 01/04/18 01/05/18 01/05/18 19:49 00:27 06:36 WBC RBC RDW [place] % (Auto) Eos % (Auto) Lymph # PT 30.1 H INR 2.65 H APTT Sodium 127 L Potassium 5.3 H Chloride 92.7 L Carbon Dioxide 20 L Glucose Magnesium ALT Troponin T 0.031 H Albumin LDL Cholesterol Direct HDL Cholesterol Urine WBC (Auto)
--- NOTE | 2018-01-05 11:00 | Consultation ---
History of Present Illness Consult date: 01/05/18 Requesting physician: KEZIA MARINA Consult reason: elevated troponin, other (recurrent falls, on anticoagulation ) History of present illness: The pt is an 82 YO female with a past medical history significant for chronic atrial fibrillation, anticoagulated with coumadin, HTN, DM, tuberculosis s/p RUL lobectomy, iron deficency anemia, CKD, OA, gout and a recent fall on 2017 with persistent left-sided paresis. She recently moved here from [place], [place], and established care in our office with Dr. Anne. The pt is alert and oriented on evaluation. She reports that she came to the hospital for evaluation of left leg pain after she sustained a mechanical fall at home while using her walker. She states that she leaned forward too far and lost her balance and slid down to the floor into a sitting position. While attempting to get up, she pulled her walked down on top of her. She reports 4 additional mechanical falls within the past 3 months. She states that she has been having difficulty with ambulation and was using a cane until recently when her PCP advised that she start using a walker. She has a decubitus over the left buttock , is being treated for cellulitis. Per the chart, pt was brought here by family for evaluation of some confusion and pt was noted to have a UTI. Pt was also noted to have AFib with RVR following arrival. Brain MRI shows two very tiny new infarcts on DWI in the Right ant limb of the internal capsule, and in the Right superior thalamus, as well as volume loss per neurology. Echo done 01/04/2018 showed EF 50-55%, mild LVH, RA mod dilated, mod TR, severe pulm HTN with RVSP 92mmHg. Past History Past Medical History: atrial fib, hypertension, other (tuberculosis s/p RUL lobectomy, iron deficency anemia, CKD, OA, gout) Past Surgical History: No surgical history Social history: single, lives with family. denies: smoking, alcohol abuse, prescription drug abuse Family history: hypertension Medications and Allergies Allergies Allergy/AdvReac Type Severity Reaction Status Date / Time No Known Allergies Allergy Unverified 01/01/18 12:11 Home Medications Medication Instructions Recorded Confirmed Last Taken Type Allopurinol [Zyloprim] 300 mg PO QDAY 01/01/18 01/01/18 Unknown History Aspirin [Aspirin BABY CHEW TAB] 81 mg PO QDAY 01/01/18 01/01/18 Unknown History Calcium Carbonate [Calcium] 600 mg PO QDAY 01/01/18 01/01/18 Unknown History Colchicine [Colcrys] 0.6 mg PO DAILY 01/01/18 01/01/18 Unknown History Ferrous Sulfate 324 mg PO QDAY 01/01/18 01/01/18 Unknown History Metoprolol Tartrate 25 mg PO BID 01/01/18 01/01/18 Unknown History Sennosides [Senna] 8.6 mg PO QDAY 01/01/18 01/01/18 Unknown History Spironolactone [Aldactone] 25 mg PO BID 01/01/18 01/01/18 Unknown History Warfarin [Coumadin] 2.5 mg PO 6XW 01/01/18 01/01/18 Unknown History Warfarin [Coumadin] 5 mg PO 1XW 01/01/18 01/01/18 Unknown History oxyCODONE [Roxicodone] 5 mg PO Q6HR PRN 01/01/18 01/01/18 Unknown History traZODone [Desyrel] 50 mg PO QHS 01/01/18 01/01/18 Unknown History Active Meds: Active Medications Acetaminophen (Tylenol) 650 mg PO Q4H PRN PRN Reason: Pain MILD(1-3)/Fever >100.5/GLEZ Last Admin: 01/02/18 18:24 Dose: 650 mg Albuterol (Proventil) 2.5 mg IH Q4HRT PRN PRN Reason: Shortness Of Breath Allopurinol (Zyloprim) 300 mg PO QDAY [facility] Last Admin: 01/05/18 09:26 Dose: 300 mg Aspirin (Baby Aspirin) 81 mg PO QDAY [facility] Last Admin: 01/05/18 09:28 Dose: 81 mg Atorvastatin Calcium (Lipitor) 40 mg PO QHS [facility] Last Admin: 01/05/18 01:09 Dose: 40 mg Colchicine (Colcrys) 0.6 mg PO DAILY [facility] Last Admin: 01/05/18 09:26 Dose: 0.6 mg Ferrous Sulfate (Feosol) 325 mg PO TID [facility] Last Admin: 01/05/18 08:45 Dose: 325 mg Gabapentin (Neurontin) 100 mg PO Q8HR [facility] Last Admin: 01/05/18 06:30 Dose: 100 mg Ceftriaxone Sodium 1 gm/ (Sodium Chloride) 20 mls @ 2 mls/min IV Q24HR [facility] Last Admin: 01/05/18 09:33 Dose: 2 mls/min Metoprolol Tartrate (Lopressor) 50 mg PO BID [facility] Last Admin: 01/05/18 09:27 Dose: 50 mg Multivitamins/Minerals (Caltrate Plus) 1 each PO QDAY [facility] Last Admin: 01/05/18 09:26 Dose: 1 each Ondansetron HCl (Zofran) 4 mg IV Q8H PRN PRN Reason: Nausea And Vomiting Oxycodone HCl (Roxicodone) 5 mg PO Q6HR PRN PRN Reason: Pain Last Admin: 01/04/18 21:13 Dose: 5 mg Senna (Senokot) 8.6 mg PO QDAY [facility] Last Admin: 01/05/18 09:26 Dose: 8.6 mg Sodium Chloride (Sodium Chloride Flush Syringe 10 Ml) 10 ml IV BID [facility] Last Admin: 01/05/18 09:35 Dose: 10 ml Sodium Chloride (Sodium Chloride Flush Syringe 10 Ml) 10 ml IV PRN PRN PRN Reason: LINE FLUSH Sodium Polystyrene Sulfonate (Kionex) 15 gm PO Q6HR PRN PRN Reason: Hyperkalemia Trazodone HCl (Desyrel) 50 mg PO QHS [facility] Last Admin: 01/04/18 21:13 Dose: 50 mg Review of Systems Constitutional: no weight loss, no weight gain, no fever, no chills, no sweats Ears, nose, mouth and throat: no ear pain, no nose pain, no sinus pressure, no sinus pain Cardiovascular: no chest pain, no orthopnea, no palpitations, no rapid/ irregular heart beat, no edema, no syncope, no lightheadedness, no shortness of breath, no dyspnea on exertion Respiratory: no cough, no shortness of breath, no dyspnea on exertion, no congestion, no wheezing, no pain on inspiration Gastrointestinal: no abdominal pain, no nausea, no vomiting, no diarrhea, no constipation, no change in bowel habits Genitourinary Female: no pelvic pain, no flank pain, no dysuria, no urinary frequency, no urgency Musculoskeletal: other (LLE pain ), no neck stiffness, no neck pain, no shooting arm pain, no arm numbness/tingling, no low back pain Integumentary: no rash Neurological: balance difficulties, no head injury, no paralysis, no weakness, no parathesias, no numbness, no tingling, no seizures, no syncope Psychiatric: no anxiety Endocrine: no cold intolerance, no heat intolerance Hematologic/Lymphatic: no easy bruising, no easy bleeding, no lymphadenopathy Allergic/Immunologic: no urticaria, no wheezing, no persistent infections Physical Examination Vital Signs Pulse Resp Pulse Ox 101 H 13 99 01/01/18 12:04 01/01/18 12:04 01/01/18 12:04 General appearance: no acute distress HEENT: Positive: PERRL, Normocephaly, Mucus Membranes Moist Neck: Positive: neck supple, trachea midline Cardiac: Positive: Reg Rate and Rhythm, S1/S2 Lungs: Positive: clear to auscultation Neuro: Positive: Grossly Intact, Other (left sided weakness) Abdomen: Positive: Soft Skin: Negative: Rash Musculoskeletal: No Pain Extremities: Absent: edema Results 01/01/18 13:07 01/05/18 00:27 Coagulation 01/05/18 Range/Units 06:36 PT 30.1 H (12.2-14.9) Sec. INR 2.65 H (0.87-1.13) Comprehensive Metabolic Panel 01/04/18 01/05/18 Range/Units 12:44 00:27 Sodium 133 L 127 L (137-145) mmol/L Potassium 5.0 5.3 H (3.6-5.0) mmol/L Chloride 95.7 L 92.7 L (98-107) mmol/L Carbon Dioxide 26 20 L (22-30) mmol/L BUN 13 14 (7-17) mg/dL Creatinine 0.8 0.8 (0.7-1.2) mg/dL Glucose 117 H 95 (65-100) mg/dL Calcium 9.6 9.5 (8.4-10.2) mg/dL - Imaging and Cardiology Echo: report reviewed (01/04/2018 showed EF 50-55%, mild LVH, RA mod dilated, mod TR, severe pulm HTN with RVSP 92mmHg. ) EKG: report reviewed, image reviewed EKG interpretations - Telemetry EKG Rhythm: Atrial Fibrillation - EKG Supraventricular dysrhythmia: atrial fibrillation Assessment and Plan Assessment: Acute CVA - neurology following Chronic atrial fibrillation with RVR --> CVR; anticoagulated with coumadin; thyroid profile WNL AMS UTI Hyperkalemia Hyponatremia HTN DM H/o tuberculosis s/p RUL lobectomy H/o iron deficency anemia CKD OA H/o recent falls Decubitus over the left buttock / cellulitis Mod TR Severe pulm HTN with RVSP 92mmHg Plan: Currently stable cardiac status. Continue current cardiac regimen. Per neurology consultation, would continue anticoagulation from neurology standpoint. Agree with continuation of systemic anticoagulation in regards to atrial fibrillation. Also, pt wishes to continue systemic anticoagulation at this time. Assessment and plan reviewed with pt at bedside. The patient has been seen in conjunction with Dr. Gutierrez who agrees with the assessment and plan of care.
[2018-01-05] MEDS ORDERED: KIONEX PO ONE (13:12)
--- NOTE | 2018-01-05 14:36 | Progress Note ---
Assessment and Plan Assessment and plan: /UTI (urinary tract infection) Urine cx growing E. coli, blood cx negative Continue Iv antibiotic therapy with rocephin, IVF resuscitation, / Acute Encephalopathy, likely metabolic CT head showed chronic ischemic changes, continue neuro checks, treat UTI, normal thyroid panel Will also obtain MRI brain / DJD (degenerative joint disease) Severe DJD, Pain control, supportive care. Pt is a poor surgical candidate for joint replacement. /Atrial fibrillation with supratherapeutic INR held Coumadin on admission, Pt family chooses to continue current therapy. INR now therapeutic, cont coumadin /HTN, will continue metoprolol, monitor BP and adjust medications as needed /Hyperkalemia, -could be med induced, stop aldectone /elevated troponin - cont aspirin, BB, start statin - consult cardiology, pt has no chest pain / Debility with recurrent falls Bed alarm, fall precautions, aspiration precautions. PT consulted - eval pending Obtain MRI /Neuropathy - b/l LE - venous doppler negative - will check B12 and Vit D, start low dose neurontin /Sacral decubitus ulcer, POA - will do wound consult / DVT prophylaxis, none needed patient anticoagulated with Coumadin Hospitalist Physical - Physical exam Narrative exam: General:Not in acute distress, lying in bed, HEENT:Normocephalic, atraumatic Neck:supple,no JVD Lungs: Clear to auscultation, no rales, no wheeze Heart:S1 and S2 regular, no murmurs, rubs or gallop Abd: soft, non tender,non distended, normal bowel sounds Ext:no edema, no clubbing or cyanosis Neuro:Awake,alert, moves all extremities, Psych:normal mood - Constitutional Vitals: Temp Pulse Resp BP Pulse Ox 98.4 F 86 18 127/69 100 01/05/18 07:45 01/05/18 07:45 01/05/18 07:45 01/05/18 07:45 01/05/18 07:45 General appearance: Present: no acute distress Results - Labs CBC & Chem 7: 01/01/18 13:07 01/05/18 00:27 Labs: Laboratory Last Values WBC 3.3 K/mm3 (4.5-11.0) L 01/01/18 13:07 RBC 3.40 M/mm3 (3.65-5.03) L 01/01/18 13:07 Hgb 10.3 gm/dl (10.1-14.3) 01/01/18 13:07 Hct 32.3 % (30.3-42.9) 01/01/18 13:07 MCV 95 fl (79-97) 01/01/18 13:07 MCH 30 pg (28-32) 01/01/18 13:07 MCHC 32 % (30-34) 01/01/18 13:07 RDW 19.5 % (13.2-15.2) H 01/01/18 13:07 Plt Count 215 K/mm3 (140-440) 01/01/18 13:07 Lymph % (Auto) 23.8 % (13.4-35.0) 01/01/18 13:07 [place] % (Auto) 8.4 % (0.0-7.3) H 01/01/18 13:07 Eos % (Auto) 9.1 % (0.0-4.3) H 01/01/18 13:07 Baso % (Auto) 0.6 % (0.0-1.8) 01/01/18 13:07 Lymph # 0.8 K/mm3 (1.2-5.4) L 01/01/18 13:07 [place] # 0.3 K/mm3 (0.0-0.8) 01/01/18 13:07 Eos # 0.3 K/mm3 (0.0-0.4) 01/01/18 13:07 Baso # 0.0 K/mm3 (0.0-0.1) 01/01/18 13:07 Seg Neutrophils % 58.1 % (40.0-70.0) 01/01/18 13:07 Seg Neutrophils # 1.9 K/mm3 (1.8-7.7) 01/01/18 13:07 PT 30.1 Sec. (12.2-14.9) H 01/05/18 06:36 INR 2.65 (0.87-1.13) H 01/05/18 06:36 APTT 73.3 Sec. (24.2-36.6) H* 01/01/18 13:07 Sodium 127 mmol/L (137-145) L 01/05/18 00:27 Potassium 5.3 mmol/L (3.6-5.0) H 01/05/18 00:27 Chloride 92.7 mmol/L (98-107) L 01/05/18 00:27 Carbon Dioxide 20 mmol/L (22-30) L 01/05/18 00:27 Anion Gap 20 mmol/L 01/05/18 00:27 BUN 14 mg/dL (7-17) 01/05/18 00:27 Creatinine 0.8 mg/dL (0.7-1.2) 01/05/18 00:27 Estimated GFR > 60 ml/min 01/05/18 00:27 BUN/Creatinine Ratio 18 % 01/05/18 00:27 Glucose 95 mg/dL (65-100) 01/05/18 00:27 Lactic Acid 1.30 mmol/L (0.7-2.0) 01/01/18 13:07 Calcium 9.5 mg/dL (8.4-10.2) 01/05/18 00:27 Magnesium 1.20 mg/dL (1.7-2.3) L 01/01/18 13:07 Total Bilirubin 0.50 mg/dL (0.1-1.2) 01/01/18 13:07 Direct Bilirubin < 0.2 mg/dL (0-0.2) 01/01/18 13:07 Indirect Bilirubin 0.3 mg/dL 01/01/18 13:07 AST 23 units/L (5-40) 01/01/18 13:07 ALT 6 units/L (7-56) L 01/01/18 13:07 Alkaline Phosphatase 88 units/L (35-129) 01/01/18 13:07 Troponin T 0.012 ng/mL (0.00-0.029) 01/05/18 00:13 Total Protein 6.9 g/dL (6.3-8.2) 01/01/18 13:07 Albumin 3.1 g/dL (3.9-5) L 01/01/18 13:07 Albumin/Globulin Ratio 0.8 % 01/01/18 13:07 Triglycerides 85 mg/dL (2-149) 01/01/18 13:07 Cholesterol 119 mg/dL (50-199) 01/01/18 13:07 LDL Cholesterol Direct 41 mg/dL (50-130) L 01/01/18 13:07 HDL Cholesterol 62 mg/dL (40-59) H 01/01/18 13:07 Cholesterol/HDL Ratio 1.91 % 01/01/18 13:07 Vitamin B12 681.3 pg/mL (211-911) 01/04/18 12:44 TSH 1.250 mlU/mL (0.270-4.200) 01/01/18 20:08 Free T4 1.26 ng/dL (0.76-1.46) 01/01/18 20:08 Urine Color Yellow (Yellow) 01/01/18 13:15 Urine Turbidity Clear (Clear) 01/01/18 13:15 Urine pH 5.0 (5.0-7.0) 01/01/18 13:15 Ur Specific [place] 1.015 (1.003-1.030) 01/01/18 13:15 Urine Protein <15 mg/dl mg/dL (Negative) 01/01/18 13:15 Urine Glucose (UA) Neg mg/dL (Negative) 01/01/18 13:15 Urine Ketones Neg mg/dL (Negative) 01/01/18 13:15 Urine Blood Sm (Negative) 01/01/18 13:15 Urine Nitrite Pos (Negative) 01/01/18 13:15 Urine Bilirubin Neg (Negative) 01/01/18 13:15 Urine Urobilinogen < 2.0 mg/dL (<2.0) 01/01/18 13:15 Ur Leukocyte Esterase Sm (Negative) 01/01/18 13:15 Urine WBC (Auto) 17.0 /HPF (0.0-6.0) H 01/01/18 13:15 Urine RBC (Auto) 1.0 /HPF (0.0-6.0) 01/01/18 13:15 U Epithel Cells (Auto) < 1.0 /HPF (0-13.0) 01/01/18 13:15 Urine Mucus Few /HPF 01/01/18 13:15 Blood Type AB POSITIVE 01/01/18 13:07 Antibody Screen Negative 01/01/18 13:07
[2018-01-05] MEDS: ROXICODONE PO PRN (16:53)
[2018-01-05] MEDS: DESYREL PO SCH (22:55)
[2018-01-06] MEDS: NEURONTIN PO SCH ×2 (07:19→13:56)
[2018-01-06] MEDS: FEOSOL PO SCH ×2 (08:15→13:56)
[2018-01-06 08:24] LABS: INR 1.92 (0.87-1.13)
[2018-01-06 08:36] LABS: BUN/Creatinine Ratio 20; Blood Urea Nitrogen 16 mg/dL (7-17); Calcium 9.1 mg/dL (8.4-10.2); Hemolysis Index 3
[2018-01-06] MEDS: BABY ASPIRIN PO SCH (09:20)
[2018-01-06] MEDS: COLCRYS PO SCH (09:21)
[2018-01-06] MEDS: CALTRATE PLUS PO SCH (09:21)
[2018-01-06] MEDS: SODIUM CHLORIDE FLUSH SYRINGE 10 ML IV SCH (09:21)
[2018-01-06] MEDS: LOPRESSOR PO SCH (09:21)
[2018-01-06] MEDS: SENOKOT PO SCH (09:21)
[2018-01-06] MEDS: ZYLOPRIM PO SCH (09:22)
[2018-01-06] MEDS: cefTRIAXone 1 GM in NACL 0.9% 20 ML IV SCH (10:00)
--- NOTE | 2018-01-06 12:37 | Progress Note ---
Assessment and Plan Assessment: Acute CVA - neurology following Chronic atrial fibrillation with RVR --> CVR; anticoagulated with coumadin; thyroid profile WNL AMS UTI Hyperkalemia Hyponatremia HTN DM H/o tuberculosis s/p RUL lobectomy H/o iron deficency anemia CKD OA H/o recent falls Decubitus over the left buttock / cellulitis Mod TR Severe pulm HTN with RVSP 92mmHg Plan: Currently stable cardiac status. Continue current cardiac regimen. Per neurology consultation, would continue anticoagulation from neurology standpoint. Agree with continuation of systemic anticoagulation in regards to atrial fibrillation. Also, pt wishes to continue systemic anticoagulation at this time. Nothing further to add from cardiac perspective. Will follow on as needed basis. Assessment and plan reviewed with pt at bedside. The patient has been seen in conjunction with Dr. Gutierrez who agrees with the assessment and plan of care. Subjective Date of service: 01/06/18 Objective Vital Signs Temp Pulse Resp Resp BP BP Pulse Ox 01/06/18 10:00 82 01/06/18 08:35 103 H 99 01/06/18 08:00 98.6 F 101 H 18 112/56 01/06/18 03:48 98.8 F 92 H 18 121/65 99 01/06/18 02:32 20 01/05/18 23:15 20 100 01/05/18 22:55 94 H 136/60 01/05/18 19:40 99.0 F 97 H 18 136/60 100 01/05/18 13:28 98.7 F 92 H 20 119/86 98 - Physical Examination HEENT: Positive: PERRL, Normocephaly, Mucus Membranes Moist Neck: Positive: neck supple, trachea midline Neuro: Positive: Grossly Intact, Other (left sided weakness) Abdomen: Positive: Soft Skin: Negative: Rash Musculoskeletal: No Pain Extremities: Absent: edema - Labs and Meds Coagulation 01/06/18 Range/Units 07:37 PT 23.2 H (12.2-14.9) Sec. INR 1.92 H (0.87-1.13) Comprehensive Metabolic Panel 01/06/18 Range/Units 07:37 Sodium 136 L D (137-145) mmol/L Potassium 4.4 (3.6-5.0) mmol/L Chloride 97.2 L (98-107) mmol/L Carbon Dioxide 28 D (22-30) mmol/L BUN 16 (7-17) mg/dL Creatinine 0.8 (0.7-1.2) mg/dL Glucose 93 (65-100) mg/dL Calcium 9.1 (8.4-10.2) mg/dL - Imaging and Cardiology EKG: report reviewed, image reviewed Echo: report reviewed (01/04/2018 showed EF 50-55%, mild LVH, RA mod dilated, mod TR, severe pulm HTN with RVSP 92mmHg. )
--- NOTE | 2018-01-06 14:25 | Discharge Summary ---
Providers - Providers Date of Admission: 01/01/18 21:10 Date of discharge: 01/06/18 Attending physician: PEDRO BURRELL 01/01/18 20:00 Physical Therapy Evaluation and Treat [CONS] Routine Comment: Reason For Exam: weakness 01/04/18 11:08 Consult to Wound/ET Nurse [CONS] Routine Reason For Exam: sacral wound eval 01/04/18 15:00 Consult to Physician [CONS] Routine Comment: CALLED ANSW. SERV. RONALD/BEATA Consulting Provider: SOPHIA REYES Physician Instructions: Reason For Exam: recurrent fall with chronic antocoagulation 01/05/18 00:32 Consult to Physician [CONS] Routine Comment: Consulting Provider: CARLEY HARVEY Physician Instructions: Reason For Exam: acute CVA Primary care physician: PEDRO GRIGSBY MD Hospitalization Condition: Fair Disposition: DC/[place]-06 HOME UNDER HOME [facility] Core Measure Documentation - Palliative Care Palliative Care/ Comfort Measures: Not Applicable - Core Measures Any of the following diagnoses?: stroke - Stroke Discharge Requirements Statin for LDL = or >70 mg/dl on DC: Yes Anticoag for atrial fib/atrial flutter: Yes Antithrombotic for ischemic stroke: Yes Exam - Physical Exam Narrative exam: General:Not in acute distress, lying in bed, HEENT:Normocephalic, atraumatic Neck:supple,no JVD Lungs: Clear to auscultation, no rales, no wheeze Heart:S1 and S2 regular, no murmurs, rubs or gallop Abd: soft, non tender,non distended, normal bowel sounds Ext:no edema, no clubbing or cyanosis Neuro:Awake,alert, moves all extremities, Psych:normal mood - Constitutional Vitals: Temp Pulse Resp BP Pulse Ox 98.6 F 82 18 112/56 99 01/06/18 08:00 01/06/18 10:00 01/06/18 08:00 01/06/18 08:00 01/06/18 08:35 Plan Activity: advance as tolerated Diet: low fat, low cholesterol, low salt Special Instructions: home health RN Additional Instructions: 1.Follow up with PCP in 3-5 days. 2.Check INR at office of PCP on Thursday01/08/18. 3.Follow up with your retirement actuary in 1 week Follow up with: PRIMARY CAREMD [Referring] - 3-5 Days Forms: Warfarin Discharge Instruction Prescriptions: Levofloxacin [Levaquin] 250 mg PO QDAY #5 tablet Metoprolol [Lopressor TAB] 50 mg PO BID #60 tablet Warfarin [Coumadin] 2.5 mg PO DAILY@1700 #30 tablet
[2018-01-06] MEDS ORDERED: COUMADIN PO SCH (17:00)
[2018-01-06 17:11] VITALS: BP 118/65
== END 2018-01-06 17:20 | disposition home health service (06) | DRG 64 ==
LOC: ED 11:34 → 2B-ACE 21:10
PROVIDERS: ADMIT Internal Medicine; ATTEND Internal Medicine
DX: I63.9 Cerebral infarction, unspecified (principal); G93.41 Metabolic encephalopathy; N39.0 Urinary tract infection, site not specified; E87.1 Hypo-osmolality and hyponatremia; M19.90 Unspecified osteoarthritis, unspecified site; L89.159 Pressure ulcer of sacral region, unspecified stage; F03.90 Unspecified dementia, unspecified severity, without behavioral disturbance, psychotic disturbance, mood disturbance, and anxiety; L89.329 Pressure ulcer of left buttock, unspecified stage; I48.2 Chronic atrial fibrillation; E87.5 Hyperkalemia; N18.9 Chronic kidney disease, unspecified; I12.9 Hypertensive chronic kidney disease with stage 1 through stage 4 chronic kidney disease, or unspecified chronic kidney disease; I27.20 Pulmonary hypertension, unspecified; E11.40 Type 2 diabetes mellitus with diabetic neuropathy, unspecified; Z82.49 Family history of ischemic heart disease and other diseases of the circulatory system; Z79.899 Other long term (current) drug therapy; Z79.82 Long term (current) use of aspirin; Z79.01 Long term (current) use of anticoagulants; Z74.01 Bed confinement status
CPT/HCPCS: 36415; 70450; 70551; 71045; 72192; 80048; 80061; 80074; 81001; 82140; 82306; 82565; 82607; 83735; 84439; 84443; 84484; 85025; 85610; 85730; 86850; 86900; 86901; 87040; 87076; 87086; 87186; 93005; 93010; 93306; 93970; 96365; 96366; 96367; 96375; A9270-GY; G8978-GP; G8979-GP; J0696; J2405; J2543; J3370; J7040; J7050